=== PATIENT | male | born 1970 | race Caucasian/White ===

== ENCOUNTER 2020-11-22 12:25 | Emergency (ER) | payer OTHER, SELFPAY ==
--- NOTE | ~2020-11-22 | CT_ITS ---
EXAMINATION: CT lumbar spine wo [facility] EXAM DATE: 11/22/2020 13:23 INDICATION: Severe lumbar pain with radiculopathy, after bending at the waist. TECHNIQUE: Spiral CT of the lumbar spine was performed without contrast. Axial, coronal and sagittal images were reviewed. The dose-length product (DLP) for this examination was 567.41 mGy-cm. The e xposure was tailored according to patient size (auto mA exposure control), and iterative reconstructi on (ASIR) was used as additional dose reduction technique. There is no prior study for comparison. FINDINGS: No endplate erosive change. There are no acute fractures identified. No spondylolysis. Ther e is 2 mm retrolisthesis L5 on S1. The vertebral bodies are otherwise aligned. Mild diffuse lumbar di sc disease. Paraspinal soft tissue is unremarkable. Level by level evaluation: T11-12: Disc does not extend beyond the endplate margin. Facet arthropathy: Mild. Neural foraminal stenosis: No stenosis. Central canal stenosis: No stenosis. T12-L1: Disc does not extend beyond the endplate margin. Facet arthropathy: None. Neural foraminal stenosis: No stenosis. Central canal stenosis: No stenosis. L1-L2: There is a minimal diffuse disc bulge. Facet arthropathy: None. Neural foraminal stenosis: No stenosis. Central canal stenosis: No stenosis. L2-L3: There is a mild diffuse disc bulge. Facet arthropathy: Mild. Neural foraminal stenosis: No stenosis. Central canal stenosis: No stenosis. L3-L4: There is a mild diffuse disc bulge. Facet arthropathy: Mild. Neural foraminal stenosis: No stenosis. Central canal stenosis: Mild. L4-L5: There is a mild diffuse disc bulge. Facet arthropathy: Moderate. Neural foraminal stenosis: Mild bilateral. Central canal stenosis: Mild to moderate. L5-S1: There is a mild to moderate diffuse disc bulge. Facet arthropathy: Moderate. Neural foraminal stenosis: Mild to moderate bilateral. Central canal stenosis: Mild. IMPRESSION: 1. Moderate lower lumbar facet arthropathy. 2. No acute findings. Reviewed, dictated and finalized at location A.
[2020-11-22 12:23] VITALS: BP 127/83; PULSE 70; RESP 18; TEMP 36.6; O2SAT 100
[2020-11-22] MEDS: HYDROmorphone HCL INJ (*CRX) 1 MG/ML SYR 0.5 MG IV PUSH (13:31)
[2020-11-22 14:26] VITALS: BP 133/80; PULSE 61; RESP 15; O2SAT 96
--- NOTE | 2020-11-22 15:40 | ED.GENADULT ---
HPI - General Adult General Chief complaint: Back Pain/Injury Stated complaint: low back pain/injury Time Seen by Provider: 11/22/20 12:30 Source: patient Mode of arrival: EMS Limitations: no limitations History of Present Illness HPI narrative: Patient presents via EMS with chief complaint of low back pain that began while in physical therapy for his left shoulder. Patient states he had shoulder surgery at the end of last month and has now been performing physical therapy to rehab it. He states that he was performing bicep curls and leaning forward to put the dumbbells down and felt a sharp pain to the center of his back. He states that her physical therapist attempted to do some stretching and therapy work to relieve the back pain, but it became worse so they called EMS. He has normal bowel and bladder function control. Related Data Home Medications Medication Instructions Recorded Confirmed azelastine 137 mcg (0.1 %) nasal 2 spray NASAL Q12H ml 07/29/19 11/22/20 spray aerosol cetirizine 10 mg tablet 10 mg PO DAILY 07/29/19 11/22/20 fluticasone propionate 50 2 spray NASAL DAILY 07/29/19 11/22/20 mcg/actuation nasal spray,suspension Allergies Allergy/AdvReac Type Severity Reaction Status Date / Time latex Allergy Mild Rash Verified 11/22/20 12:37 Review of Systems Review of Systems: Narrative: CONSTITUTIONAL: Denies fever, chills, or sweats. EYES: Denies visual changes, redness, or discharge. ENT: Denies rhinorrhea, congestion, sore throat, or otalgia. CARDIOVASCULAR: Denies chest pain, palpitations, or edema. RESPIRATORY: Denies cough or dyspnea. GASTROINTESTINAL: Denies abdominal pain, nausea, vomiting, or diarrhea. GENITOURINARY: Denies dysuria or hematuria. SKIN: Denies rash or itching. MUSCULOSKELETAL: Reports back pain denies myalgia, or joint pain NEUROLOGIC: Denies headache, numbness, dizziness, or weakness. PSYCHIATRIC: Denies anxiety or depression. [facility] Surgical History Surgical History History of removal of cyst Family History Family History Father Patient's father is in good health Social History Social History Smoking status: Never smoker Second hand tobacco smoke exposure: No Alcohol intake: current Exam Narrative: Exam Narrative: GENERAL: Well-appearing, well-nourished. HEAD: Normocephalic, atraumatic. EYES: PERRLA and EOMI. NECK: Supple. No adenopathy or masses. No vertebral tenderness or loss of ROM. CHEST: Clear to auscultation. No respiratory distress. No wheezes rales or rhonchi HEART: Regular rate and rhythm. Normal peripheral pulses. EXTREMITIES: No acute changes in ROM. No edema. SKIN: Warm, dry, no rash. NEURO: No focal deficits. Alert and oriented x3. No saddle paresthesias. Sensation and range of motion intact to lower extremities. PSYCH: Normal mood and affect. Course Vital Signs Vital signs: Vital Signs Temperature 97.9 F 11/22/20 12:23 Pulse Rate 70 11/22/20 12:23 Respiratory Rate 18 11/22/20 12:23 Blood Pressure 127/83 11/22/20 12:23 Pulse Oximetry 100 11/22/20 12:23 Temperature 97.9 F 11/22/20 12:23 Pulse Rate 61 11/22/20 14:26 Respiratory Rate 15 11/22/20 14:26 Blood Pressure 133/80 11/22/20 14:26 Pulse Oximetry 96 11/22/20 14:26 Medical Decision Making MDM Narrative Medical decision making narrative: Patient CT was negative. Patient reports improvement in his pain. Patient does have to move slowly but he is able to stand and ambulate. Patient denies any numbness or tingling or pain radiating to his lower extremities. Patient has been able to urinate without difficulty. Patient instructed of the need to follow-up with his primary care. He still has [place] from his surgery but he will be given muscle relaxers. Patient states he f
== END 2020-11-22 16:15 | disposition home or self-care (01) ==
PROVIDERS: Emergency Provider Emergency Medicine; PCP Internal Medicine
DX: S39.012A Strain of muscle, fascia and tendon of lower back, initial encounter (principal); X50.9XXA Other and unspecified overexertion or strenuous movements or postures, initial encounter
CPT/HCPCS: 72131; 96374; 99284; J1170

== ENCOUNTER 2020-12-12 08:59 | Outpatient (CLI) | payer OTHER, SELFPAY ==
--- NOTE | 2020-12-28 11:24 | WPDHOMESLEEP ---
Sleep Study - Home Unattended Date of Study: 12/12/20 Ordering Provider: Cesar Nix DO Interpreting Provider: Tori Fernandes MD Home Sleep Study Type: Apnea Link Air Height: 1.83 m Weight: 86.183 kg Body Mass Index: 25.7 Neck Circumference (inches): 13.25 [place]: 13 Reason for Sleep Study Hypersomnolence Sleep History Gunnar Campoverde is a 50 year old man with snoring and excessive daytime sleepiness. He has a long history of sinus problems, had allergy shots in childhood and currently takes allergy medicines for allergic rhinitis. He has had a deviated septum surgically repaired. He falls asleep quickly but wakes up about a third of the nights and cannot go back to sleep. He does not wake up in order to use the bathroom. Most of the times when he wakes during the night, he will try to do yoga to relax in order to help him return to sleep. It may take as long as 2-4 hours for him to return to sleep. He is always tired in the morning. Most of the time he wakes with a morning headache. There is a family history with his father having sleep disordered breathing. He frequently snores loudly enough that others complain about it. He does not awaken at night with heartburn, belching or coughing. He does not awaken from sleep feeling short of breath. He frequently has trouble sleeping if he has a cold. He does not wake up gasping for breath at night. He frequently has breathing problems at night observed by others. He occasionally sweats excessively at night. He does not notice his heart pounding or beating irregularly night. He rarely falls asleep during the day never involuntarily never while driving. He rarely has loss of muscle tone with strong emotion. 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 He frequently has vivid dreamlike scenes upon awakening or falling asleep. He rarely feels afraid to go to sleep. He occasionally has nightmares. He occasionally remembers his dreams. He frequently has racing thoughts. He rarely feels sad or depressed. He rarely has anxiety. He frequently has muscular tension. He does not notice parts of his body jerking and he does not kick at night. He rarely has crawling and aching feelings in his legs. He occasionally has leg pain at night. He does not have morning jaw pain. He does not grind his teeth during the sleep. He is not bothered by pain during the day or awakened by pain at night. He frequently wakes up feeling stiff the morning with sore achy muscles and pain in the neck and spine. He has headaches, fatigue, memory problems and concentration difficulties and insomnia. Normal bedtime is 9:30 p.m. falling asleep immediately, typically waking 2-4 times at night. These episodes of wake last between 30 minutes and 4 hours. He will wait in bed for a while trying to return to sleep, and if he is not able to fall asleep, he goes to the bathroom to void then does yoga. He wakes in the morning at 5:00 a.m.. On the weekends he goes to bed at 10:00 p.m. and wakes at 6:00 a.m.. He estimates getting 7-8 hours of sleep at night. He does take naps in the afternoon or evening. A short nap lasting 10 or 15 minutes is not refreshing. He is usually drowsy in the morning for 2 hours or longer. He feels better in the afternoon compared to the morning. He is excessively sleepy at 8:00 p.m., and this sometimes has an effect on his driving at night for work. Habits: Never smoked tobacco. Caffeine 2-3 cups per day. Alcohol 0-2 servings per week. No recreational drugs. COUNT INCLUDES THE [facility] Past Medical History Medical History (Updated 12/28/20 @ 12:21 by Tori Fernandes MD) Allergic rhinitis Surgical History Surgical History (Updated 12/28/20 @ 11:28 by Tori Fernandes MD) History of hernia surgery History of removal of cyst History of shoulder surgery S/P correction of deviated nasal septum 2010 Family History Family History (Updated 12/28
[2020-12-28 12:32] VITALS: BMI 25.7
== END 2020-12-12 09:00 | disposition home or self-care (01) ==
LOC: ANHCSM 08:59
PROVIDERS: PCP Internal Medicine; Visit Provider Internal Medicine
DX: G47.10 Hypersomnia, unspecified (principal)
CPT/HCPCS: 95806

== ENCOUNTER → 2021-01-24 03:16 | Outpatient (CLI) | payer OTHER, SELFPAY ==
[2021-01-24 18:14] LABS: SARS-CoV-2 RNA PCR Negative
== END ==
PROVIDERS: PCP Internal Medicine; Visit Provider Internal Medicine Critical Care Medicine
DX: R68.89 Other general symptoms and signs (principal); Z20.822 Contact with and (suspected) exposure to COVID-19
CPT/HCPCS: C9803; U0003; U0005

== ENCOUNTER 2021-01-26 08:11 | Outpatient (CLI) | payer OTHER, SELFPAY ==
--- NOTE | 2021-02-13 14:24 | WPDSLEEPSTUD ---
Sleep Study Date of Study: 01/26/21 Ordering Provider: Cesar Nix DO Interpreting Physician: Tori Fernandes MD Sleep Study Type: Polysomnogram Height: 1.83 m Weight: 86.183 kg Body Mass Index: 25.7 Neck Circumference (inches): 16 [place]: 13 Reason for Sleep Study Hypersomnolence Sleep History Gunnar Campoverde is a 51-year-old male who had a home sleep test on 12/12/2020. This showed normal values. His AHI was 3, minimum saturation was 91% and he had mild snoring. He has severe excessive daytime sleepiness, and presented for a split night study. He has snoring and excessive daytime sleepiness. He has a long history of sinus problems, had allergy shots in childhood and currently takes allergy medicines for allergic rhinitis. He has had a deviated septum surgically repaired. He falls asleep quickly but wakes up about a third of the nights and cannot go back to sleep. He does not wake up in order to use the bathroom. Most of the times when he wakes during the night, he will try to do yoga to relax in order to help him return to sleep. It may take as long as 2-4 hours for him to return to sleep. He is always tired in the morning. Most of the time he wakes with a morning headache. There is a family history with his father having sleep disordered breathing. He frequently snores loudly enough that others complain about it. He does not awaken at night with heartburn, belching or coughing. He does not awaken from sleep feeling short of breath. He frequently has trouble sleeping if he has a cold. He does not wake up gasping for breath at night. He frequently has breathing problems at night observed by others. He occasionally sweats excessively at night. He does not notice his heart pounding or beating irregularly night. He rarely falls asleep during the day, never involuntarily, and never while driving. He rarely has loss of muscle tone with strong emotion. 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 He frequently has vivid dreamlike scenes upon awakening or falling asleep. He rarely feels afraid to go to sleep. He occasionally has nightmares. He occasionally remembers his dreams. He frequently has racing thoughts. He rarely feels sad or depressed. He rarely has anxiety. He frequently has muscular tension. He does not notice parts of his body jerking and he does not kick at night. He rarely has crawling and aching feelings in his legs. He occasionally has leg pain at night. He does not have morning jaw pain. He does not grind his teeth during the sleep. He is not bothered by pain during the day or awakened by pain at night. He frequently wakes up feeling stiff the morning with sore achy muscles and pain in the neck and spine. He has headaches, fatigue, memory problems and concentration difficulties and insomnia. Normal bedtime is 9:30 p.m. falling asleep immediately, typically waking 2-4 times at night. These episodes of wake last between 30 minutes and 4 hours. He will wait in bed for a while trying to return to sleep, and if he is not able to fall asleep, he goes to the bathroom to void then does yoga. He wakes in the morning at 5:00 a.m.. On the weekends he goes to bed at 10:00 p.m. and wakes at 6:00 a.m.. He estimates getting 7-8 hours of sleep at night. He does take naps in the afternoon or evening. A short nap lasting 10 or 15 minutes is not refreshing. He is usually drowsy in the morning for 2 hours or longer. He feels better in the afternoon compared to the morning. He is excessively sleepy at 8:00 p.m., and this sometimes has an effect on his driving at night for work. Habits: Never smoked tobacco. Caffeine 2-3 cups per day. Alcohol 0-2 servings per week. No recreational drugs. [facility] Past Medical History Medical History Allergic rhinitis Surgical History Surgical History (Reviewed 02/13/21 @ 14
[2021-02-13 14:59] VITALS: BMI 25.7
== END 2021-01-27 05:53 | disposition home or self-care (01) ==
LOC: ANHCSM 08:12
PROVIDERS: PCP Internal Medicine; Visit Provider Internal Medicine
DX: G47.10 Hypersomnia, unspecified (principal)
CPT/HCPCS: 95810

== ENCOUNTER 2022-04-27 00:19 | Day surgery (SDC) | payer OTHER, SELFPAY ==
[2022-04-17 13:49] VITALS: BMI 24.7
[2022-04-27 11:15] VITALS: BP 110/92; PULSE 76; RESP 18; TEMP 36.2; O2SAT 98; BMI 24.4
[2022-04-27] MEDS: LACTATED RINGERS 1,000 ML 150 ML IV CONT (11:26)
--- NOTE | 2022-04-27 11:32 | P.PNAN_ITS ---
Anes - Initial Pre Proc Eval Procedure: Operation Date: 04/27/22 12:30 Proposed Procedures p Screening Colonoscopy - Chaim Gomez MD Date/Time: 04/27/22 11:32 Surgeon: Chaim Gomez MD Pre Op Diagnosis: neoplasm screening Patient Data Age: 52 Gender: M Height: 1.83 m Weight: 81.8 kg Last Vital Signs Temp 97.1 F L 04/27/22 11:15 Pulse 76 04/27/22 11:15 Resp 18 04/27/22 11:15 BP 110/92 H 04/27/22 11:15 Pulse Ox 98 04/27/22 11:15 O2 Del Method Room Air 04/27/22 11:15 Allergies Allergy/AdvReac Type Severity Reaction Status Date / Time latex Allergy Mild Rash Verified 04/27/22 11:14 Home Medications Medication Instructions Recorded Confirmed Type azelastine 137 mcg (0.1 %) nasal 2 spray intranasal Q12H 07/29/19 04/17/22 History spray aerosol cetirizine 10 mg tablet (Zyrtec) 10 mg PO DAILY 07/29/19 04/17/22 History fluticasone propionate 50 2 spray intranasal DAILY 07/29/19 04/17/22 History mcg/actuation nasal spray,suspension (Flonase Allergy Relief) Patient hx anesthesia problems: none Family hx anesthesia problems: none Results Review: All pre-operative results and documents have been reviewed as part of the pre- operative evaluation. [facility] Past Medical History Medical History Allergic rhinitis Surgical History Surgical History History of hernia surgery History of removal of cyst History of shoulder surgery S/P correction of deviated nasal septum 2010 Family History Family History Father Patient's father is in good health Obstructive sleep apnea Social History Social History Smoking status: Never smoker Second hand tobacco smoke exposure: No Alcohol intake: current Alcohol use details: rarely Substance use: never Substance use type: does not use Living arrangements: with family Spiritual care concerns: No Anes - Eval Final PreProcedure Day of Procedure 04/27/22 11:32 Patient weight: normal Heart: regular rate and rhythm Lungs: clear to auscultation Airway: Mallampati scale class II Neurological: alert and oriented Last oral intake: >/= 8 hours ASA classification: II Emergent: no Anesthetic plan: proceed Anesthesia type and monitoring: general GIVS and standard monitoring Results Review: All pre-operative results and documents have been reviewed as part of the pre- operative evaluation. Informed Consent: The patient's anesthetic plan and its attendant risks and benefits were discussed with the patient/family/POA. Questions were solicited and answers provided to the satisfaction of the patient/family/POA.
--- NOTE | 2022-04-27 12:03 | PM.HPGS ---
History of Present Illness History of Present Illness Consent: Risks, benefits, and alternatives have been discussed and questions answered. Patient agrees to proceed with procedure. Chief complaint: neoplasm screening Narrative: Gunnar Campoverde is a 52 year old male here for first screening colonoscopy Review of Systems Constitutional: Constitutional: Denies headache(s) and Denies weakness Eyes: Eyes: Denies blurry vision ENT: Reports Normal hearing present, Denies headache(s) and Denies neck pain Cardiovascular: Cardiovascular: Denies chest pain and Denies dyspnea Respiratory: Respiratory: Denies dyspnea Gastrointestinal: Gastrointestinal: Reports no additional gastrointestinal complaints Genitourinary: Genitourinary: Denies dysuria Musculoskeletal: Musculoskeletal: Denies neck pain Integumentary/Breasts: Skin/Breast: Denies dry skin Neurologic: Reports Normal hearing present, Denies headache(s) and Denies weakness Psychiatric: Psychiatric: Denies anxiety Endocrine: Endocrine: Denies change in body appearance Hematologic/Lymphatic: Hematologic/Lymphatic: Denies easy bleeding Allergic/Immunologic: Allergic/Immunologic: Denies urticaria PMF Past Medical History Medical History (Updated 04/27/22 @ 12:03 by Chaim Gomez MD) Allergic rhinitis Colon cancer screening Surgical History Surgical History History of hernia surgery History of removal of cyst History of shoulder surgery S/P correction of deviated nasal septum 2010 Family History Family History Father Patient's father is in good health Obstructive sleep apnea Social History Social History Smoking status: Never smoker Second hand tobacco smoke exposure: No Alcohol intake: current Alcohol use details: rarely Substance use: never Substance use type: does not use Living arrangements: with family Spiritual care concerns: No Meds Home Medications and Allergies Home Medications Medication Instructions Recorded Confirmed Type azelastine 137 mcg (0.1 %) nasal 2 spray intranasal Q12H 07/29/19 04/17/22 History spray aerosol cetirizine 10 mg tablet (Zyrtec) 10 mg PO DAILY 07/29/19 04/17/22 History fluticasone propionate 50 2 spray intranasal DAILY 07/29/19 04/17/22 History mcg/actuation nasal spray,suspension (Flonase Allergy Relief) Allergies Allergy/AdvReac Type Severity Reaction Status Date / Time latex Allergy Mild Rash Verified 04/27/22 11:14 Vital Signs Vital Signs - 24 hr 04/27/22 11:15 Temperature 97.1 F L Pulse Rate 76 Respiratory Rate 18 Blood Pressure 110/92 H Pulse Oximetry 98 Oxygen Delivery Room Air Exam Const: General: comfortable and no acute distress HENMT: General nose exam: Normal nares present Eyes: General: appearance normal, both eyes and all related structures Neck: Neck: no JVD Resp: Auscultation: clear to auscultation bilaterally Cardio: Rate: regular rate Rhythm: regular rhythm GI: Inspection: non-distended GI Palp: Yes Soft to palpation Skin: General skin exam: normal color Neuro: General: gait normal Speech: normal speech Extrem: General: normal to inspection Psych: Mental Status: mental status grossly normal Assessment and Plan Assessment and plan (1) Colon cancer screening: Code(s): Z12.11 - Encounter for screening for malignant neoplasm of colon Status: Acute Assessment and Plan: colonoscopy
[2022-04-27 12:26] VITALS: BP 125/71; PULSE 67; RESP 24; O2SAT 98
[2022-04-27 12:36] VITALS: BP 120/76; PULSE 79; RESP 21; O2SAT 98
[2022-04-27 12:46] VITALS: BP 121/87; PULSE 70; RESP 17; O2SAT 100
== END 2022-04-27 12:58 | disposition home or self-care (01) ==
PROVIDERS: PCP Internal Medicine; Visit Provider Internal Medicine Gastroenterology
PROC: 0DJD8ZZ Inspection of Lower Intestinal Tract, Via Natural or Artificial Opening Endoscopic (ICD-10-PCS; CPT 45378; principal; 2022-04-27 12:30)
DX: Z12.11 Encounter for screening for malignant neoplasm of colon (principal); K63.5 Polyp of colon; K64.8 Other hemorrhoids
CPT/HCPCS: 45385; 88305; J2704; J7120